=== PATIENT | male | born 1960 | race Caucasian/White ===

== ENCOUNTER 2021-11-30 08:07 | Emergency (ER) | payer OTHER ==
[~2021-11-30] VITALS: Ht 170.2 cm; Wt 95.3 kg
[2021-11-30 08:29] LABS: BASOPHIL 0.8 % (0-2); EOSINOPHIL 4.7 % (0-5); HCT 46.5 % (42.0-52.0); HGB 16.1 g/dl (13.2-18.0); LYMPHOCYTE 35.9 % (15-48); MCH 31.9 pg (25.0-31.0); MCHC 34.6 g/dL (32.0-36.0); MCV 92.1 fL (78.0-100.0); MONOCYTE 11.2 % (0-12); MPV 8.8 fL (6.0-9.5); NEUTROPHIL 47.1 % (41-80); NRBC 0; PLT 255 K/uL (150-400); RBC 5.05 M/uL (4.70-6.00); RDW 12.8 % (11.5-14.0); WBC 9.5 K/uL (4.0-10.5)
[2021-11-30 08:57] LABS: BUN/CREAT RATIO (CALC) 16.5 RATIO; CREATININE 1.03 mg/dL (0.67-1.17); POTASSIUM 3.8 mmol/L (3.5-5.1)
[2021-11-30 10:31] LABS: CORONAVIRUS 2019 SARS-COV-2 NEGATIVE (NEGATIVE); INFLUENZA A NAA NEGATIVE (NEGATIVE)
== END 2021-11-30 09:42 | disposition other institution (70) ==
LOC: FER 08:07
PROVIDERS: Internal Medicine
DX: I21.9 Acute myocardial infarction, unspecified (principal); I10 Essential (primary) hypertension; Z20.822 Contact with and (suspected) exposure to COVID-19
CPT/HCPCS: 36415; 80048; 84484; 85025; 93005; J3101; J7030; U0002